=== PATIENT | female | born 1980 | race American Indian/Alaskan Native ===

== ENCOUNTER 2020-12-04 22:27 | Emergency (ER) | payer MEDICAID ==
--- NOTE | 2020-12-04 23:34 | Emergency Department Report ---
ED Neck Pain/Injury HPI - General Chief Complaint: Neck Pain/Injury Stated Complaint: LEFT SIDE FACIAL SWELLING Time Seen by Provider: 12/04/20 23:16 Mode of arrival: Ambulatory Limitations: No Limitations - History of Present Illness Initial Comments: 40-year-old female with no significant past medical history presents to the hospital planing of progressively worsening swelling to the left side of her neck since . Swelling started while incarcerated. Patient received MRI angio imaging at [facility] August 27. Patient was able to access report online. As per report patient was diagnosed with bilateral nonspecific parotid tail mass. Left measured 2.6 x 1 cm, right measuring 2.3 x 1.4 cm. Patient also has multistation bilateral cervical subclavicular lymph nodes with no pathologic enlargement. As per report ENT follow-up is recommended. Patient states she was released from retirement 3 months ago and has not followed up. For the past 1 month patient's left neck mass has increased in size. Mild tenderness. No fever, shortness of breath, or difficulty swallowing. Patient also states she was diagnosed with thyroid disease but unsure if it was hypothyroidism or hyperthyroidism is not currently on thyroid medication. She denies recent weight loss and endorses some weight gain - Related Data Allergies Allergy/AdvReac Type Severity Reaction Status Date / Time No Known Allergies Allergy Unverified 12/04/20 23:28 ED Review of Systems ROS: Stated complaint: LEFT SIDE FACIAL SWELLING Other details as noted in HPI Comment: All other systems reviewed and negative ED Past Medical Hx - Past Medical History Previous Medical History?: No - Surgical History Past Surgical History?: No ED Physical Exam - General Limitations: No Limitations - Other Other exam information: General: No acute distress Head: Atraumatic Eyes: normal appearance ENT: Moist mucous membranes, posterior pharynx normal Neck: Normal appearance, left-sided neck/submandibular mass mild tenderness. No warmth or erythema. No stridor Chest: Clear to auscultation bilaterally CV: Regular rate and rhythm Abdomen: Soft, normal bowel sounds, nontender, nondistended, no rebound or guarding Back: Normal inspection Extremity: Normal inspection, full range of motion Neuro: Alert O x 3, no facial asymmetry, speech clear, no gross motor sensory deficit Psych: Appropriate behavior Skin: No rash ED Course Vital Signs 12/04/20 22:40 Temperature 95.7 F L Pulse Rate 79 Respiratory 18 Rate Blood Pressure 119/85 [Left] O2 Sat by Pulse 98 Oximetry ED Medical Decision Making - Lab Data Result diagrams: 12/05/20 00:56 12/05/20 Unknown Lab Results 12/05/20 12/05/20 12/05/20 Range/Units 00:56 00:56 00:56 WBC 5.8 (4.5-11.0) K/mm3 RBC 4.71 (3.65-5.03) M/mm3 Hgb 13.6 (10.1-14.3) gm/dl Hct 40.3 (30.3-42.9) % MCV 85 (79-97) fl MCH 29 (28-32) pg MCHC 34 (30-34) % RDW 13.5 (13.2-15.2) % Plt Count 269 (140-440) K/mm3 Lymph % (Auto) 33.2 (13.4-35.0) % [place] % (Auto) 8.1 H (0.0-7.3) % Eos % (Auto) 4.4 H (0.0-4.3) % Baso % (Auto) 0.4 (0.0-1.8) % Lymph # (Auto) 1.9 (1.2-5.4) K/mm3 [place] # (Auto) 0.5 (0.0-0.8) K/mm3 Eos # (Auto) 0.3 (0.0-0.4) K/mm3 Baso # (Auto) 0.0 (0.0-0.1) K/mm3 Seg Neutrophils % 53.9 (40.0-70.0) % Seg Neutrophils # 3.1 (1.8-7.7) K/mm3 Sodium TNR Potassium TNR Chloride TNR Carbon Dioxide TNR Anion Gap TNR BUN TNR Creatinine TNR Estimated GFR TNR BUN/Creatinine Ratio TNR Glucose TNR Calcium TNR HCG, Qual Negative (Negative) 12/05/20 Range/Units Unknown WBC (4.5-11.0) K/mm3 RBC (3.65-5.03) M/mm3 Hgb (10.1-14.3) gm/dl Hct (30.3-42.9) % MCV (79-97) fl MCH (28-32) pg MCHC (30-34) % RDW (13.2-15.2) % Plt Count (140-440) K/mm3 Lymph % (Auto) (13.4-35.0) % [place] % (Auto) (0.0-7.3) % Eos % (Auto) (0.0-4.3) % Baso % (Auto) (0.0-1.8) % Lymph # (Auto) (1.2-5.4) K/mm3 [place] # (Auto) (0.0-0.8) K/mm3 Eos # (Auto) (0.0-0.4) K/mm3 Baso # (Auto) (0.0-0.1) K/mm3 Seg Neutrophils % (40.0-70.0) % Seg Neutrophils # (1.8-7.7) K/mm3 Sodium 135 L Potassium 3.9 Chloride 101.9 Carbon Dioxide 24 Anion Gap 13 BUN 16 Creatinine 0.9 Estimated GFR > 60 BUN/Creatinine Ratio 18 Glucose 106 H Calcium 8.8 HCG, Qual (Negative) - Radiology Data Radiology results: report reviewed CT neck w con INDICATION / CLINICAL INFORMATION: 40 years Female; LEFT neck / submandibular mass. 100 cc of Omnipaque 300 were used during this exam. TECHNIQUE: Contiguous thin cut axial images obtained through the neck following IV contrast. Sagittal and coronal reconstructions performed by the technologist. All CT scans at this location are performed using CT dose reduction for ALARA by means of automated exposure control. COMPARISON: None available. FINDINGS: The left parotid gland, there is a lesion identified in what is classically termed the superficial portion, measuring approximately 4.1 cm craniocaudally by 2.8 cm transversely by approximately 2.7 cm AP. This lesion demonstrates rim enhancement along with multiple septations, but largely, centrally, the lesion appears to be cystic. Warthin's tumors might be the most likely etiology. Similar, much smaller finding may be in the right parotid gland, anteriorly, in the superficial portion, measuring approximately 1.5 cm in maximum dimension. MRI of the neck might be helpful for further evaluation. MUCOSAL SPACE: Prominent soft tissues seen in the roof the nasopharynx, pres umably related to adenoidal tissue. [place] and lingual tonsillar tissue is prominent as well. Otherwise, the nasoph arynx, oropharynx and vallecula, oral cavity and floor of mouth, hypopharynx, and larynx are grossly normal. LYMPH NODES: Lymph nodes are diffusely prominent. Etiologies, such as lymphoma, cannot be excluded. SALIVARY GLANDS: Otherwise, the parotid, submandibular, and visualized sublingual glands are within normal limits. THYROID GLAND: Unremarkable. PARANASAL SINUSES: There is opacification of the hypoplastic sphenoid sinuses. Mild mucosal thickening seen in the ethmoids and maxillary antra. Mild mucosal thickening in the mastoid air cells, as well. SPINE: No significant abnormality of the cervical spine appreciated. VASCULAR STRUCTURES: Vascular structures are grossly normal in appearance. ADDITIONAL FINDINGS: Surrounding soft tissues are otherwise grossly normal. IMPRESSION: 1. Prominent lesion in the left parotid gland as described above. There may be a similar, smaller finding in the right parotid gland. Warthin's tumors would be the most likely etiologies. Pre and postcontrast MRI of the neck could be performed on an outpatient basis, for further evaluation, if clinically warranted. 2. Prominent lymphoid tissue throughout, as described above. Etiologies such as lymphoma might be a consideration. 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 Based on CT report suspected these tumors are benign. No signs of airway obstruction, abscess, or infection. Patient provided a copy of her CAT scan and ENT referral for further work-up. Patient endorses a history of "abnormal thyroid function". No clinical signs of thyroid storm or myxedema coma at this time and therefore patient can follow-up as outpatient for further thyroid testing. Critical Care Time: No Critical care attestation.: If time is entered above; I have spent that time in minutes in the direct care of this critically ill patient, excluding procedure time. ED Disposition Clinical Impression: Tumor of parotid gland, Lymphadenopathy Disposition: HOME / SELF CARE / HOMELESS Is pt being admited?: No Does the pt Need Aspirin: No Condition: Stable Instructions: Salivary Gland Cancer, Lymphadenopathy Additional Instructions: Your CAT scan today shows that you had tumors of your parotid glands (the right greater than the left). It suspected that these tumors are benign (not cancerous) however, you need further work-up by ENT doctor to determine if these tumors are noncancerous or cancerous. Please follow-up as an outpatient with the ENT doctor for further work-up and evaluation. Follow-up with a primary care doctor for further work-up and evaluation and retesting of your thyroid function You may take Tylenol or Motrin as needed for pain Referrals: MINOR KAY MD [Referring] - 3-5 Days (ENT) FLORES PHAM MD [Staff Physician] - 3-5 Days (ENT) SAMMI CRUZ MD [Staff Physician] - 3-5 Days (Primary care doc) [facility] [Provider Group] - 3-5 Days (Primary care clinic) Time of Disposition: 03:11
[2020-12-05 01:08] LABS: Basophils % (Auto) 0.4 % (0.0-1.8); Eosinophils # (Auto) 0.3 K/mm3 (0.0-0.4); Eosinophils % (Auto) 4.4 % (0.0-4.3); Hematocrit 40.3 % (30.3-42.9); Hemoglobin 13.6 gm/dl (10.1-14.3); Lymphocytes # (Auto) 1.9 K/mm3 (1.2-5.4); Lymphocytes % (Auto) 33.2 % (13.4-35.0); Mean Corpuscular HGB Conc 34 % (30-34); Mean Corpuscular Volume 85 fl (79-97); Monocytes # (Auto) 0.5 K/mm3 (0.0-0.8); Monocytes % (Auto) 8.1 % (0.0-7.3); Platelet Count 269 K/mm3 (140-440); Red Blood Count 4.71 M/mm3 (3.65-5.03); Red Cell Distribution Width 13.5 % (13.2-15.2)
[2020-12-05 01:57] LABS: BUN/Creatinine Ratio TNR; Blood Urea Nitrogen TNR mg/dL (7-17); Calcium TNR mg/dL (8.4-10.2); Hemolysis Index TNR
--- NOTE | 2020-12-05 02:12 | Cat Scan Report ---
CT neck w con INDICATION / CLINICAL INFORMATION: 40 years Female; LEFT neck / submandibular mass. 100 cc of Omnipaque 300 were used during this exam. TECHNIQUE: Contiguous thin cut axial images obtained through the neck following IV contrast. Sagittal and sloan l reconstructions performed by the technologist. All CT scans at this location are performed using CT dose reduction for ALARA by means of automated exposure control. COMPARISON: None available. FINDINGS: The left parotid gland, there is a lesion identified in what is classically termed the supe rficial portion, measuring approximately 4.1 cm craniocaudally by 2.8 cm transversely by approximatel y 2.7 cm AP. This lesion demonstrates rim enhancement along with multiple septations, but largely, ce ntrally, the lesion appears to be cystic. Warthin's tumors might be the most likely etiology. Similar, much smaller finding may be in the right parotid gland, anteriorly, in the superficial porti on, measuring approximately 1.5 cm in maximum dimension. MRI of the neck might be helpful for further evaluation. MUCOSAL SPACE: Prominent soft tissues seen in the roof the nasopharynx, presumably related to adenoid al tissue. [place] and lingual tonsillar tissue is prominent as well. Otherwise, the nasopharynx, or opharynx and vallecula, oral cavity and floor of mouth, hypopharynx, and larynx are grossly normal. LYMPH NODES: Lymph nodes are diffusely prominent. Etiologies, such as lymphoma, cannot be excluded. SALIVARY GLANDS: Otherwise, the parotid, submandibular, and visualized sublingual glands are within n ormal limits. THYROID GLAND: Unremarkable. PARANASAL SINUSES: There is opacification of the hypoplastic sphenoid sinuses. Mild mucosal thickenin g seen in the ethmoids and maxillary antra. Mild mucosal thickening in the mastoid air cells, as well . SPINE: No significant abnormality of the cervical spine appreciated. VASCULAR STRUCTURES: Vascular structures are grossly normal in appearance. ADDITIONAL FINDINGS: Surrounding soft tissues are otherwise grossly normal. IMPRESSION: 1. Prominent lesion in the left parotid gland as described above. There may be a similar, smaller fin ding in the right parotid gland. Warthin's tumors would be the most likely etiologies. Pre and postco ntrast MRI of the neck could be performed on an outpatient basis, for further evaluation, if clinical ly warranted. 2. Prominent lymphoid tissue throughout, as described above. Etiologies such as lymphoma might be a c onsideration. Signer Name: Rene Durham MD, III Signed: 12/05/2020 2:08 AM Workstation Name: [id number]
[2020-12-05 03:09] LABS: BUN/Creatinine Ratio 18; Blood Urea Nitrogen 16 mg/dL (7-17); Calcium 8.8 mg/dL (8.4-10.2); Hemolysis Index 13
[2020-12-05 03:40] VITALS: BP 117/60
== END 2020-12-05 03:32 | disposition home or self-care (01) ==
LOC: ED 22:27
DX: C07 Malignant neoplasm of parotid gland (principal); R59.1 Generalized enlarged lymph nodes
CPT/HCPCS: 36415; 70491; 80048; 84703; 85025; 99284; Q9967